=== PATIENT | female | born 1990 | race Caucasian/White ===

== ENCOUNTER 2017-12-29 08:51 | Inpatient (IN) | payer OTHER ==
[~2017-12-29] VITALS: Ht 160 cm; Wt 87.1 kg
[~2017-12-29 08:51] MED LIST: KEFLEX500 MG PO; PERCOCET 325 MG1 TA2 PO; QUASENSE 30 MCG1 TAB PO
[2017-12-29] MEDS ORDERED: LABETALOL HCL100 M1 PO (09:39)
--- NOTE | 2017-12-29 10:32 | History & Physical ---
General Information and HPI MD Statement: I have seen and personally examined KYLE CARMONA and documented this H&P. The patient is a 27 year old female at [37] weeks and [3] days gestation who presented with a chief complaint of [IOL]. Source of Information: patient Exam Limitations: no limitations History of Present Illness: 27yo, at 347 3/7wks, here for IOL due to preeclampsia. pt has no copmplaints, denies ctxs, no VB or LOF, denies headach, blur vision, no epigastric pain., reports GFM crae started at 18 wks, she had elevated BP since 32 wks, she takes labetalol 100mg BID, 24 hr urine total protein was 651mg on 12/22/2017. GBS positive Allergies/Medications Allergies: Uncoded Allergies: SEASONAL CATS DOGS (10/21/15) Home Med list Labetalol HCl 100 MG TABLET 100 MG PO BID PRECLAMPSIA (Reported) Compliance With Home Meds: GOOD Past History weathercaster History : 1 Para: 0 Last Menstrual Period: unknown Estimated Delivery Date: 01/16/2018 Past weathercaster History: none Medical History Blood Transfusion Hx: No Neurological: NONE EENT: NONE Cardiovascular: NONE Respiratory: NONE Gastrointestinal: NONE Hepatic: NONE Renal: NONE Musculoskeletal: NONE Psychiatric: NONE Endocrine: NONE Blood Disorders: NONE Cancer(s): NONE IAP DISPLAYS ANALYST/Reproductive: NONE Surgical History Pertinent Surgical History: appendectomy, N Past Family/Social History Psychosocial History Where do you live? Home Smoking Status: Never Smoked ETOH Use: denies use Illicit Drug Use: denies illicit drug use Review of Systems Review of Systems Constitutional: Reports: no symptoms. EENTM: Reports: no symptoms. Cardiovascular: Reports: no symptoms. Respiratory: Reports: no symptoms. GI: Reports: no symptoms. Genitourinary: Reports: see HPI. Musculoskeletal: Reports: no symptoms. Skin: Reports: no symptoms. Neurological/Psychological: Reports: no symptoms. Hematologic/Endocrine: Reports: no symptoms. Immunologic/Allergic: Reports: no symptoms. All Other Systems: Reviewed and Negative Exam & Diagnostic Data Last 24 Hrs of Vital Signs/I&O Intake & Output 12/29 1600 / 0800 12/29 0000 Intake Total Output Total Balance Patient 87.09 kg Weight Obstetric Exam Wgt Gained During : 32lb Pelvimetry: adequate Dilation (cm): 0 Effacement (%): 20 Station: -3 Membranes: intact Fluid: unknown Fundal Height (cm): 37 Multiple Gestation? No Contractions: irregular Infant #1 - FHR Baseline: 130 Category: 1 Estimated Weight: 3200g Presentation: vertex Patient for Induction? Yes De Jesus Score De Jesus Score Response Value Cervix Position: posterior 0 Cervix Consistency: medium 1 Cervix Effacement: 0-30% 0 Cervix Dilation: closed 0 Cervix Station: -3 0 Total 1 Physical Exam: VSS Gen eral: NAD Abdomen: gravid, soft, nontender Ext: DCT (-) Labs Blood Type & Rh: A negative Antibody Screen: negative Hct/Hgb & Platelets #1: 12.3/38.7%,PLT [id number] Hct/Hgb & Platelets #2: 11.8/38.8%,[id number] Rubella: immune VDRL #1: negative VDRL #2: negative HbsAg: negative HIV #1: negative HIV #2 negative 1 Hr P Group B Strep: positive Initial Ultrasound: IUP at 18 wks Anatomy Ultrasound: nl Genetic Testing: none Assessment/Plan Assessment/Plan: 27yo, 37 3/7wks, preeclampsia, IOL 1. admit pt, admission labs 2. antibiotic for GBS prophylaxis 3. R/B/A of misoprostol for cervical ripening d/w pt, she undertsand, all querstion s ans wered, informed cosnent obtained. 1 st dose misoprostol placed into vagina in sterile fashiomn. 4. will monitor closely As Ranked By This Provider Problem List: 1. 2. Pre-eclampsia Core Measures Venous Thromboembolism VTE Risk Factors / No Mechanical VTE Prophylaxis d/t LowRisk-No Interven Req'd No VTE Pharm Prophylaxis d/t LowRisk-No Interven Req'd Attending MD Review Statement Attending Statement Attending MD Statement: examined this patient, discussed with family, discussed w/nursing Attending Statement Attending MD Statement: examined this patient, discussed with family, discussed w/nursing
[2017-12-29 11:15] LABS: ABSOLUTE BASOPHIL COUNT 0 /CUMM (0.0-0.2); ABSOLUTE EOSINOPHIL COUNT 0 /CUMM (0.0-0.7); ABSOLUTE GRANULOCYTE CT 4.9 /CUMM (1.4-6.5); ABSOLUTE MONOCYTE COUNT 0.5 /CUMM (0.10-0.60); BASOPHIL % 0.4 % (0.0-2.0); EOSINOPHIL % 0.5 % (0-5); GRANULOCYTE % 65.3 % (42.2-75.2); HEMATOCRIT 33.9 % (37-47); MEAN CORPUSCULAR HGB 31.6 PG (27.0-31.0); MEAN CORPUSCULAR HGB CONC 34.7 G/DL (33.0-37.0); MEAN CORPUSCULAR VOLUME 91.1 FL (81.0-99.0); MEAN PLATELET VOLUME 8.8 FL (7.4-10.4); PLATELET COUNT 264 /CUMM (130-400); RBC DISTRIBUTION WIDTH 13.1 % (11.5-14.5); RED BLOOD CELL CT 3.73 /CUMM (4.20-5.40); WHITE BLOOD CELL COUNT 7.6 /CUMM (4.8-10.8)
--- NOTE | 2017-12-29 14:15 | PN- OBGYN ---
Surgical Brief Attending Note Brief Attending Note: pt has no complaints on TOCO: ctxs q 2-3 min, FHR baseline 130, moderate variability, + acels, no decels. will defer the 2nd dose of misoprostol, will monitor closely
--- NOTE | 2017-12-29 18:08 | PN- OBGYN ---
Surgical Brief Attending Note Brief Attending Note: pt has no complaints on TOCO: ctxs q 2-3 min, FHR cat I VE deferred will continue monitor closely
--- NOTE | 2017-12-30 09:08 | PN- OBGYN ---
Surgical Brief Attending Note Brief Attending Note: Pt examined now 1 cm posterior and 40% -3 station FHR cat 1 uc's mostly mild Q4min after sleeping overnight. Pt with PIH no severe features PLT 264K UTP/Cr 1.1 bp's mildly elevated. After preping with betadine 24 romansh ash catherer placed intracervically inflated with 30 cc sterile saline tollerated well by pt. Will order PIH labs today
[2017-12-30 10:10] LABS: ABSOLUTE BASOPHIL COUNT 0 /CUMM (0.0-0.2); ABSOLUTE EOSINOPHIL COUNT 0 /CUMM (0.0-0.7); ABSOLUTE GRANULOCYTE CT 5.6 /CUMM (1.4-6.5); ABSOLUTE LYMPH COUNT 2.2 /CUMM (1.2-3.4); ABSOLUTE MONOCYTE COUNT 0.8 /CUMM (0.10-0.60); BASOPHIL % 0.2 % (0.0-2.0); EOSINOPHIL % 0.4 % (0-5); HEMATOCRIT 33.3 % (37-47); MEAN CORPUSCULAR HGB 31.7 PG (27.0-31.0); MEAN CORPUSCULAR VOLUME 90.6 FL (81.0-99.0); MEAN PLATELET VOLUME 8.5 FL (7.4-10.4); PLATELET COUNT 257 /CUMM (130-400); RBC DISTRIBUTION WIDTH 13.3 % (11.5-14.5); RED BLOOD CELL CT 3.68 /CUMM (4.20-5.40); WHITE BLOOD CELL COUNT 8.7 /CUMM (4.8-10.8)
--- NOTE | 2017-12-30 15:33 | PN- OBGYN ---
Surgical Brief Attending Note Brief Attending Note: after 6hrs of ash balloon pt kevin only q5 min and mild cx unchanged will apply one misoprostal to cervix. R cat 1
[2017-12-30 19:46] VITALS: BP 157/84
--- NOTE | 2017-12-31 01:14 | Labor & Delivery Summary ---
Delivery Summary Vaginal Delivery: Vaginal: vertex Episiotomy/Lacerations: Episiotomy/Lacerations: none Anesthesia: EPIDURAL Placenta: Placenta: spontanteous, normal, 3 vessel Anesthesia: block Apgars - 1 Min: 9 Apgars - 5 Min: 9 Additional Comments: PUSHED TWICE INTACT PERINEUM
--- NOTE | 2017-12-31 14:30 | PN- OBGYN ---
Surgical Brief Attending Note Brief Attending Note: pt doing well. no fowler / bv / ruq / epig pain. no n/v. +ace po. amb / void. +bf. pain well controlled. afeb, 140/80 nad abd soft nt ff ricardo mod lochia ext nt ppd 0 s/p , iol for pec, bp's mildly elevated, doing well -cont routine pp care
--- NOTE | 2018-01-01 09:30 | PN- Post Delivery/GYN ---
Subjective Subjective: feeling well Review of Systems Constitutional: Denies: chills, fever. EENTM: Denies: blurred vision, double vision, visual changes. Gastrointestinal: Denies: diarrhea, nausea, vomiting. Neurological/Psychological: Denies: anxiety, depressed. Objective Last 24 Hrs of Vital Signs/I&O vss Physical Exam General Appearance Alert, Oriented X3, Cooperative, No Acute Distress Cardiovascular Regular Rate Lungs Clear to Auscultation Abdomen Soft, fundus firm Pelvic (FEMALE) lochia serosanganous Current Medications: Current Medications Sig/Ze Start time Last Medication Dose Route Stop Time Status Admin Acetaminophen 650 MG Q4P PRN 12/31 114 AC PO Hydroxyzine HCl 50 MG AT BEDTIME NEED.. 12/31 114 AC PO Ibuprofen 800 MG Q6P PRN 12/31 114 AC 01/01 PO 0603 Magnesium Hydroxide 30 ML DAILY PRN 12/31 114 AC PO Last 24 Hrs of Labs/Ujan: Laboratory Tests 01/01/18 0735: CBC w Diff Pending, WBC Pending, RBC Pending, Hgb Pending, Hct Pending, MCV Pending, MCH Pending, MCHC Pending, RDW Pending, Plt Count Pending, MPV Pending Assessment/Plan Assessment/Plan PPD #1 vss afebrile plan d/c home tomorrow Problem List: 1. 2. Pre-eclampsia Attending MD Review Statement Attending Statement Attending MD Statement: examined this patient, discussed with nursing
[2018-01-01 09:44] LABS: ABSOLUTE BASOPHIL COUNT 0 /CUMM (0.0-0.2); ABSOLUTE EOSINOPHIL COUNT 0.2 /CUMM (0.0-0.7); ABSOLUTE GRANULOCYTE CT 4.8 /CUMM (1.4-6.5); ABSOLUTE LYMPH COUNT 2.6 /CUMM (1.2-3.4); ABSOLUTE MONOCYTE COUNT 0.8 /CUMM (0.10-0.60); BASOPHIL % 0.5 % (0.0-2.0); EOSINOPHIL % 1.9 % (0-5); GRANULOCYTE % 57.3 % (42.2-75.2); HEMATOCRIT 32.3 % (37-47); MEAN CORPUSCULAR HGB CONC 33.5 G/DL (33.0-37.0); MEAN CORPUSCULAR VOLUME 92.7 FL (81.0-99.0); MEAN PLATELET VOLUME 8.2 FL (7.4-10.4); PLATELET COUNT 230 /CUMM (130-400); RBC DISTRIBUTION WIDTH 13.5 % (11.5-14.5); RED BLOOD CELL CT 3.48 /CUMM (4.20-5.40); WHITE BLOOD CELL COUNT 8.4 /CUMM (4.8-10.8)
--- NOTE | 2018-01-02 08:18 | PN- OBGYN ---
Surgical Brief Attending Note Brief Attending Note: PPD#2 pt is resting in bed, no complaints. tolerate diet, void without difficulties. ambulating well PE: VSS CV RRR Lungs CTA B/L Abdomen: soft, nontender, uterus firm, fundus below umbilicus. lochia mild Ext: DCT (-) A/P: 31 yo, s/p , PPD#2, h/o preeclampsia 1. encourage ambualtion and 2. continue home BP monittor, f/u in office in 2 wks 3. will d/c home today, discharge instruction given. f/u in office in 2wks and 6 wks
[2018-01-02] MEDS ORDERED: IBUPROFEN800 M1 PO (08:19)
== END 2018-01-02 11:31 | DRG 775 ==
LOC: GNO 08:51
PROVIDERS: Obstetrics & Gynecology
PROC: 10E0XZZ Delivery of Products of Conception, External Approach (ICD-10-PCS; principal; 2017-12-31)
PROC: 3E0P7VZ Introduction of Hormone into Female Reproductive, Via Natural or Artificial Opening (ICD-10-PCS; principal; 2017-12-31)
DX: O14.94 Unspecified pre-eclampsia, complicating childbirth (principal); O99.824 Streptococcus B carrier state complicating childbirth; Z37.0 Single live birth; Z3A.37 37 weeks gestation of pregnancy
CPT/HCPCS: GNOP; GNOS; 36415; 81001; 87086; 88307; J7120